=== PATIENT | female | born 1990 | race American Indian/Alaskan Native ===

== ENCOUNTER 2018-10-02 16:13 | Emergency (ER) | payer OTHER ==
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
[2018-10-02] MEDS ORDERED: NORCO 5/325 PO ONE (18:05)
[2018-10-02] MEDS ORDERED: FLEXERIL PO ONE (18:05)
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
[2018-10-02] MEDS ORDERED: BOOSTRIX IM ONE (18:25)
[2018-10-02] MEDS ORDERED: TRIPLE ANTIBIOTIC TP ONE (18:25)
[2018-10-02 19:17] VITALS: BP 120/56
== END 2018-10-02 19:17 | disposition home or self-care (01) ==
LOC: ED 16:13
DX: S30.0XXA Contusion of lower back and pelvis, initial encounter (principal); S10.93XA Contusion of unspecified part of neck, initial encounter; S60.221A Contusion of right hand, initial encounter; V49.9XXA Car occupant (driver) (passenger) injured in unspecified traffic accident, initial encounter; Y93.89 Activity, other specified; Y92.410 Unspecified street and highway as the place of occurrence of the external cause; Y99.8 Other external cause status
CPT/HCPCS: 71045; 72040; 90715; A6250